=== PATIENT | male | born 1960 | race Caucasian/White ===

== ENCOUNTER → 2017-11-25 08:55 | Outpatient (CLI) | payer BC, SELFPAY ==
[2017-11-25 10:21] LABS: ALB/GLOB Ratio 0.8 RATIO (0.9-2.4); AST(SGOT) 15 U/L (15-37); Alanine Aminotransfer ALT/SGPT 23 U/L (16-61); Albumin, Serum 3.5 g/dL (3.2-5.0); Alkaline Phosphatase 54 U/L (45-117); Anion Gap 7 (5-15); BUN 19 mg/dL (7-18); BUN/Creat Ratio 23.7 RATIO (10-20); Chloride 104 mmol/L (98-107); EST Glomerular Filtration Rate 106 mL/min (>60); Est Glom Filt Rate - Afr Amer 128 mL/min (>60); Globulin 4.3 g/dL (2.2-4.2); Glucose 134 mg/dL (74-106); Potassium 4.8 mmol/L (3.5-5.1); Protein, Total 7.8 g/dL (6.4-8.2); Sodium Level 138 mmol/L (136-145); Thyroid Stim Hormone (TSH) 3.95 uIU/mL (0.358-3.74)
[2017-11-25 17:36] LABS: T4 Free Direct 0.89 ng/dL (0.76-1.46)
== END ==
PROVIDERS: Family Provider Family Medicine; PCP Family Medicine; Visit Provider Family Medicine
DX: E11.9 Type 2 diabetes mellitus without complications (principal); E66.9 Obesity, unspecified
CPT/HCPCS: 36415; 80053; 84403; 84439; 84443

== ENCOUNTER → 2018-01-03 05:54 | Outpatient (CLI) | payer BC, SELFPAY ==
--- NOTE | 2018-01-03 05:54 | DT_ITS ---
This patient was seen during an EMR downtime December 27, 2017 - January 03, 2018. This patient may have a combination of paper and electronic documentation or all paper documentation. All documentation is viewable within the e-chart portion of [facility] for each patient visit.
--- NOTE | 2018-01-03 06:46 | ECHOCS_ITS ---
Reason For Study: Arrhythmia Procedure This was a 2D Doppler, Color Flow transthoracic echocardiogram. Exam performed in department. Left Ventricle Normal LV size. Left ventricular systolic function is normal. The estimated ejection fraction is 60 %. No evidence for diastolic dysfunction. No regional wall motion abnormalities noted. Right Ventricle Normal RV size. Normal systolic function. Atria The left atrium is mildly enlarged. Normal right atrium. Mitral Valve Normal mitral valve. Tricuspid Valve Normal tricuspid valve. Aortic Valve The aortic valve is not well visualized. Pulmonic Valve Normal pulmonic valve. Great Vessels Normal aortic root. The pulmonary artery is normal size. Normal inferior vena cava. Pericardium/Pleural No pericardial effusion. Medication Diluted definity 4ml given slow IV push to enhance endocardial definition. MMode/2D Measurements & Calculations LVIDd: 3.8 cm IVSd: 1.2 cm Ao root diam: 3.9 cm LVIDs: 2.1 cm LVPWd: 1.0 cm LA dimension: 3.7 cm RVDd: 4.0 cm FS: 45.6 % LAV(MOD-bp): 92.4 ml LAV(MOD-bp) Indexed: 39.9 ml/m2 LA A4 area: 27.3 cm2 RA A4 area: 22.9 cm2 LAV(MOD-sp2): 86.3 ml LAV(MOD-sp4): 88.2 ml Doppler Measurements & Calculations MV E max madan: 113.4 cm/sec Ao V2 max: 133.9 cm/sec LV V1 max: 109.5 cm/sec MV A max madan: 66.0 cm/sec Ao max P.5 mmHg LV V1 max P.0 mmHg MV E/A: 1.7 PA V2 max: 83.5 cm/sec Interpretation Summary Normal LV size. Left ventricular systolic function is normal. The estimated ejection fraction is 60 %. No evidence for diastolic dysfunction. Contrast injection was performed. Ordering Physician: Maksim Ware MD Referring Physician: Yovany Booker MD Performed By: Mary Mcdonough RDCS
--- NOTE | 2018-01-03 18:01 | STRESSREP ---
Stress Test Report Pharmacologic myocardial perfusion stress test. 57-year-old man with a history of premature ventricular complexes. Stress protocol: Resting EKG demonstrates normal sinus rhythm with a rate of 101 bpm and frequent premature ventricular complexes unifocal. Resting blood pressure is 148/100 mmHg. 0.4 mg regadenoson was infused per usual protocol followed by rapid intravenous saline flush injection continuous EKG monitoring was performed. Patient maintained sinus rhythm throughout the recording. Ventricular ectopic beats were noted in the pattern of bigeminy. The resting blood pressure is 148/100 with a final blood pressure 146/100 mmHg. Myocardial perfusion protocol. 14.6 mCi of technetium 99m sestamibi was injected at rest. 0.4 mg regadenoson was infused per usual protocol peak infusion 44.0 mCi of technetium 99m sestamibi was injected stress images were obtained stress and rest images were reconstructed and compared in the short axis vertical long and horizontal long axis. Gated images were also obtained pre- Perfusion SPECT analysis: Review of the stress images demonstrate normal uptake of tracer noted in all areas of the myocardium. The resting images similarly demonstrate normal uptake of tracer noted in all areas of the myocardium. No areas of reversibility are noted suggest ischemia. No previous infarct is noted. Gated SPECT analysis: The gated ejection fraction is estimated to be 30%. Conclusion: Dilated cardiomyopathy. Pharmacologic myocardial perfusion stress test with no evidence of ischemia.
== END ==
PROVIDERS: Family Provider Family Medicine; PCP Family Medicine; Visit Provider Internal Medicine Cardiovascular Disease
DX: I49.3 Ventricular premature depolarization (principal); I25.10 Atherosclerotic heart disease of native coronary artery without angina pectoris
CPT/HCPCS: 78452; 93017; 93306; A9500; Q9957; A4216; C8929; J2785

== ENCOUNTER 2018-03-15 19:42 | Observation (INO) | payer BC, SELFPAY ==
[2018-03-11 09:36] LABS: Hematocrit 38.3 % (40-54); Hemoglobin 11.6 g/dl (13.0-16.5); Mean Corp Hgb Conc 30.3 g/gl (32-36); Mean Corpuscular Volume 79.1 fL (80-94); Mean Platelet Vol. 9.8 fl (6.2-12.0); Platelet Count 204 K/mm3 (150-450); RBC Distribution Width CV 19.1 % (11.6-14.6); RBC Distribution Width SD 55.3 fl (35.1-43.9); Red Blood Count 4.84 M/mm3 (4.6-6.2); White Blood Count 6.3 K/mm3 (4.4-11.0)
[2018-03-11 09:38] LABS: Scan Indicated on CBC? Y/N NO
[2018-03-11 10:10] LABS: Anion Gap 10 (5-15); BUN 22 mg/dL (7-18); BUN/Creat Ratio 21.2 RATIO (10-20); Calcium,Total 8.9 mg/dL (8.5-10.1); Chloride 109 mmol/L (98-107); Creatinine, Serum 1.04 mg/dL (0.70-1.30); EST Glomerular Filtration Rate 78 mL/min (>60); Est Glom Filt Rate - Afr Amer 95 mL/min (>60); Glucose 131 mg/dL (74-106); Potassium 4.5 mmol/L (3.5-5.1); Sodium Level 142 mmol/L (136-145)
[2018-03-11 10:16] LABS: Hemoglobin A1c 6.5 % (4.2-6.3)
[2018-03-15] VITALS (14 sets, daily range): BP systolic 127–162; BP diastolic 69–121; PULSE 94–109; RESP 16–17; TEMP 36.8–37; O2SAT 94–99; BMI 41.6; BMI 41.7
[2018-03-15 14:46] LABS: Bedside Glucose 117 mg/dL (70-110)
[2018-03-15 18:14] LABS: Albumin, Serum 3.6 g/dL (3.2-5.0); Anion Gap 7 (5-15); BUN 20 mg/dL (7-18); BUN/Creat Ratio 22.6 RATIO (10-20); Chloride 107 mmol/L (98-107); Creatinine, Serum 0.88 mg/dL (0.70-1.30); EST Glomerular Filtration Rate 95 mL/min (>60); Est Glom Filt Rate - Afr Amer 114 mL/min (>60); Estimated Creatinine Clearance 90.68 ml/min; Glucose 106 mg/dL (74-106); Magnesium 1.7 mg/dL (1.6-2.6); Potassium 4.5 mmol/L (3.5-5.1); Sodium Level 138 mmol/L (136-145)
--- NOTE | 2018-03-15 19:50 | PCM.HP.STD ---
Problem List (1) Hyperlipidemia Status: Chronic Qualifiers: (2) Dyspnea Status: Chronic (3) Frequent PVCs Status: Chronic (4) Hypertension Status: Chronic Qualifiers: (5) Obesity Status: Chronic (6) Pulses bigeminy Status: Acute (7) Umbilical hernia Status: Chronic History of Present Illness Date of Admission: 03/15/18 Chief Complaint: Preoperative found to have pulses bigeminy. The patient is a 57 year old M with history of diabetes mellitus type 2, glucose well controlled on oral hypoglycemic agents, hypertension while scheduled for elective umbilical hernia by Dr. Ron today but was canceled because of PVCs and pulses bigeminy. Patient denies any chest pain, shortness of breath but had this feeling of frequent heartbeats for about 2 years. Patient also had a pharmacological nuclear stress test and 2D echo in December 2017. This test was found negative EF 30% echo shows EF 60% with no evidence of diastole. Mild LAE. Patient had EKG on March 11, 2018 which shows sinus bradycardia with frequent PVCs pulses bigeminy. QTc 467 ms. EKG today prior to surgery shows frequent pulses bigeminy with QTc 487 ms Lab work done today shows K4.5, magnesium 1.7. Last chest x-ray in our system 03/2016 shows reported as hyperinflation with no acute infiltration. Dr. Ron decided to admit under hospitalist service with cardiology consult. [] Past Medical History Past Medical History (Chronic Problems): Chronic Problems (Last Reviewed 02/23/18 @ 13:59 by Yohan Ron MD) Umbilical hernia (Chronic) Hyperlipidemia (Chronic) Dyspnea (Chronic) Frequent PVCs (Chronic) Hypertension (Chronic) Obesity (Chronic) Medical History: Medical History (Last Reviewed 02/23/18 @ 13:59 by Yohan Ron MD) Hyperlipidemia (Chronic) E78.5 Dyspnea (Chronic) R06.00 Frequent PVCs (Chronic) I49.3 Hypertension (Chronic) I10 Obesity (Chronic) E66.9 Type 2 diabetes mellitus without complications E11.9 Umbilical hernia K42.9 Allergies No Known Allergies Allergy (Verified 03/08/18 09:37) Home Medications: Ambulatory Orders Medication Instructions Recorded lisinopril 10 mg tablet 10 mg PO QDAY 30 Days #30 tab 11/30/17 metformin ER 500 mg 500 mg PO BID 30 Days #60 11/30/17 tablet,extended release 24 hr simvastatin 20 mg tablet 20 mg PO QPM 30 Days #30 tab 11/30/17 sitagliptin 100 mg tablet 100 mg PO QDAY 11/30/17 Surgical History: Surgical History (Last Reviewed 02/23/18 @ 13:59 by Yohan Ron MD) left foot surgery Smoking Status: Current some day smoker Tobacco Use: Chew Review of Systems Constitutional: Reports: - - Obese. Denies: Chills, Fever, Weight Change HEENT: Denies: Head Aches, Sinus Congestion, Sinus Drainage Cardiovascular: Denies: Chest Pain, Palpitations Respiratory: Denies: Cough, Shortness of breath at rest, Sputum production Gastrointestinal: Denies: Abdominal Pain, Nausea, Vomiting Genitourinary: Denies: Dysuria Musculoskeletal: Denies: Joint Pain, Joint Tenderness Skin: Denies: Rash, Wounds Neurological: Denies: Numbness, Tingling, Focal weakness Psychiatric: Denies: Anxiety, Depression, Homicidal Ideations, Suicidal Ideations Hematologic/ Lymphatic: Denies: Easy Bruising, Easy Bleeding VTE Information - Inpt Only VTE Present on Admission: No VTE Mechan Device Prophylaxis: None VTE Pharm Prophylaxis ordered?: Yes Patient Problems: Active and Suspected Problems (Last Reviewed 02/23/18 @ 13:59 by Yohan Ron MD) Pulses bigeminy (Acute) - Physical Exam General: Alert, Oriented x3, Cooperative HEENT: Atraumatic, PERRLA, EOMI, Normocephalic Neck: Supple, No JVD, Negative Carotid Bruits Lungs: Clear to auscultation, Normal air movement, No rhonchi, No wheeze Cardiovascular: Regular rate, No murmurs Abdomen: Bowel Sounds Present, Soft, Non Tender, Hernia - Umbilical hernia present, chronic in nature. No signs of obstruction. Extremities: No edema, Capillary Refill Less than 3 Seconds Skin: No rashes, No breakdown Musculoskeletal: No Tenderness to Palpation of Joints or Extremities Neurological: Cranial nerves II-XII grossly intact Psych/Mental Status: Normal Affect, Appropriate Vital Signs Temp Pulse Resp BP Pulse Ox 98.2 F 105 H 17 127/81 H 97 03/15/18 19:30 03/15/18 19:30 03/15/18 19:30 03/15/18 19:30 03/15/18 19:30 Oxygen Flow Rate (L/min) 4 Oxygen Delivery Method Room Air Weight: 274 lb 0.553 oz Body Mass Index (BMI) 41.6 Intake and Output for Last 24 Hours 03/13/18 03/14/18 03/15/18 23:59 23:59 23:59 Intake Total 700 / 700 Balance 700 / 700 Laboratory Tests Past 24 Hrs 03/15/18 17:44 Sodium 138 Potassium 4.5 Chloride 107 Carbon Dioxide 24.0 Anion Gap 7 BUN 20 H Creatinine 0.88 Estim Creat Clear Calc 90.68 Est GFR (MDRD) Af Amer 114 Est GFR (MDRD) Non-Af 95 BUN/Creatinine Ratio 22.6 H Glucose 106 Calcium 9.0 Magnesium 1.7 Troponin I < 0.015 Albumin 3.6 POC Glucose 03/15/18 14:12 POC Glucose 117 H Assessment/Plan All Active Problems (Last Reviewed 02/23/18 @ 13:59 by Yohan Ron MD) Pulses bigeminy (Acute) The patient is a 57 year old M with history of diabetes mellitus type 2, glucose well controlled on oral hypoglycemic agents, hypertension while scheduled for elective umbilical hernia by Dr. Ron today but was canceled because of PVCs and pulses bigeminy. Patient denies any chest pain, shortness of breath but had this feeling of frequent heartbeats for about 2 years. Patient also had a pharmacological nuclear stress test and 2D echo in December 2017. This test was found negative EF 30% echo shows EF 60% with no evidence of diastole. Mild LAE. Patient had EKG on March 11, 2018 which shows sinus bradycardia with frequent PVCs pulses bigeminy. QTc 467 ms. EKG today prior to surgery shows frequent pulses bigeminy with QTc 487 ms Lab work done today shows K4.5, magnesium 1.7. Last chest x-ray in our system 03/2016 shows reported as hyperinflation with no acute infiltration. Dr. Ron decided to admit under hospitalist service with cardiology consult. 1. Pulses bigeminy with frequent PVCs: As per the previous EKG of March 11, patient had pulses bigeminy but it got more frequent this time. As per the ui ux engineer's office visit patient had the symptoms of palpitation, PVCs. Patient denies any previous cardiac conditions including heart failure, near syncope or syncopal episodes. Currently, patient is asymptomatic. Patient is being admitted in PCU. Cardiac monitoring. Cardiology consult. Electrolytes tomorrow morning 2. Diabetes mellitus type 2 with good glycemic control: Last A1c 6.5 in February 2018. Blood sugar in BMP is 106 mg percent. Accu-Chek before meals and at bedtime cover with NovoLog sliding scale. 3. Hypertension: Blood pressure is controlled. Continue home medications 4. Dyslipidemia with morbid obesity: Patient advised fasting profile in December 2016 which showed LDL 103, HDL 92 and total cholesterol 213. Repeat lipid profile tomorrow a.m. Weight loss and exercise advised. 5. Chronic umbilical hernia with no signs and symptoms of obstruction or inflammation: Follow-up with Dr. Ron as an outpatient. Medication reconciliation done. This note was generated with [employer] dictation software. Every effort was made to ensure accuracy, however computerized credit product analyst mistakes may persist. Code Visit OBSV E&M: 73727 Initial observation care L3
[2018-03-15 20:36] LABS: Bedside Glucose 111 mg/dL (70-110)
[2018-03-15] MEDS: Enoxaparin 40 MG/0.4 ML Syringe SC (20:57)
[2018-03-15] MEDS: Atorvastatin Calcium 10 MG Tablet PO (20:58)
[2018-03-15] MEDS: Lisinopril 10 MG Tablet PO (20:59)
[2018-03-16 02:27] VITALS: BP 146/77; PULSE 96; RESP 16; TEMP 36.7; O2SAT 97
[2018-03-16 03:16] VITALS: PULSE 92
[2018-03-16 07:00] VITALS: PULSE 101
[2018-03-16 07:08] LABS: Anion Gap 11 (5-15); BUN 19 mg/dL (7-18); BUN/Creat Ratio 22.2 RATIO (10-20); Calcium,Total 8.8 mg/dL (8.5-10.1); Chloride 105 mmol/L (98-107); Cholesterol 185 mg/dL (200); Creatinine, Serum 0.86 mg/dL (0.70-1.30); EST Glomerular Filtration Rate 98 mL/min (>60); Est Glom Filt Rate - Afr Amer 119 mL/min (>60); Estimated Creatinine Clearance 92.79 ml/min; Glucose 124 mg/dL (74-106); High Density Lipoprotein 80 mg/dL; Potassium 4.7 mmol/L (3.5-5.1); Sodium Level 140 mmol/L (136-145); Triglycerides 153 mg/dL; Very Low Density Lipoprotein 31 mg/dL (5-40)
[2018-03-16 07:21] LABS: Bedside Glucose 133 mg/dL (70-110)
[2018-03-16 07:27] VITALS: O2SAT 98
[2018-03-16 08:36] VITALS: BP 129/83; PULSE 50; RESP 16; TEMP 36.8; O2SAT 97
[2018-03-16] MEDS: Enoxaparin 40 MG/0.4 ML Syringe SC (08:38)
--- NOTE | 2018-03-16 09:28 | PCM.PN.SRG ---
Patient Problems: Active and Suspected Problems (Last Reviewed 02/23/18 @ 13:59 by Yohan Ron MD) Pulses bigeminy (Acute) Subjective: Patient evaluated resting comfortably in bed. He denies chest pain, shortness of breath or heart palpitations. Patient had multiple arrhythmias overnight per nursing. - Physical Exam General: Alert, Oriented x3, Cooperative Vital Signs Temp Pulse Resp BP Pulse Ox 98.3 F 50 L 16 129/83 H 97 03/16/18 08:36 03/16/18 08:36 03/16/18 08:36 03/16/18 08:36 03/16/18 08:36 Oxygen Flow Rate (L/min) 4 Oxygen Delivery Method Room Air Weight: 274 lb 4.081 oz Body Mass Index (BMI) 41.7 Intake and Output for Last 24 Hours 03/14/18 03/15/18 03/16/18 23:59 23:59 23:59 Intake Total 700 / 700 240 / 240 Balance 700 / 700 240 / 240 Laboratory Tests Past 24 Hrs 03/15/18 03/15/18 03/16/18 17:44 21:26 00:04 Sodium 138 Potassium 4.5 Chloride 107 Carbon Dioxide 24.0 Anion Gap 7 BUN 20 H Creatinine 0.88 Estim Creat Clear Calc 90.68 Est GFR (MDRD) Af Amer 114 Est GFR (MDRD) Non-Af 95 BUN/Creatinine Ratio 22.6 H Glucose 106 Calcium 9.0 Magnesium 1.7 Troponin I < 0.015 < 0.015 < 0.015 Albumin 3.6 Triglycerides Cholesterol LDL Cholesterol VLDL Cholesterol HDL Cholesterol 03/16/18 06:18 Sodium 140 Potassium 4.7 Chloride 105 Carbon Dioxide 24.0 Anion Gap 11 BUN 19 H Creatinine 0.86 Estim Creat Clear Calc 92.79 Est GFR (MDRD) Af Amer 119 Est GFR (MDRD) Non-Af 98 BUN/Creatinine Ratio 22.2 H Glucose 124 H Calcium 8.8 Magnesium Troponin I Albumin Triglycerides 153 Cholesterol 185 LDL Cholesterol 74 VLDL Cholesterol 31 HDL Cholesterol 80 POC Glucose 03/16/18 03/15/18 03/15/18 07:14 20:23 14:12 POC Glucose 133 H 111 H 117 H Medical Necessity - Tobacco Use Smoking Status: Current some day smoker Tobacco Use: Chew Assessment/Plan All Active Problems (Last Reviewed 02/23/18 @ 13:59 by Yohan Ron MD) Samra cornjeo (Acute) I have evaluated this patient in conjunction with Dr. Ron. Impression: Cardiac arrhythmia. Umbilical hernia Cardiology consulted Appreciate hospitalist input Patient to follow-up back up with our office once cleared by cardiology to reschedule umbilical hernia repair. Code Visit Inpatient E&M: 64783 Subs Hosp L1
--- NOTE | 2018-03-16 10:05 | PCM.DC ---
- Discharge Diagnoses Current Active Problems: Current Active and Chronic Problems (Last Reviewed 02/23/18 @ 13:59 by Yohan Ron MD) Pulses bigeminy (Acute) Umbilical hernia (Chronic) You will use the following diet at home:: Calorie/Carbohydrate Controlled (specify 1200, 1400, etc), Cardiac Discharge Activity: Return to Normal Activity Call your doctor if you observe: Shortness of breath, Dizziness, Fainting spells, Chest pain Additional Instructions: You will need to return for placement of cardiac holter monitor on Wednesday03/21/18. Dr. Ware will read this test and if provide clearance for surgery if normal. Increase home metoprolol regimen to 50mg daily. Allergies/Adverse Reactions: Allergies No Known Allergies Allergy (Verified 03/08/18 09:37) Medications to take at Discharge lisinopril 10 mg tablet 10 mg PO QDAY 30 Days #30 tab 11/30/17 metformin ER 500 mg tablet,extended release 24 hr 500 mg PO BID 30 Days #60 11/30/17 simvastatin 20 mg tablet 20 mg PO QPM 30 Days #30 tab 11/30/17 sitagliptin 100 mg tablet 100 mg PO QDAY 11/30/17 Metoprolol Succinate 50 mg PO DAILY #30 tab.er.24h 03/16/18 The following prescriptions were given: Metoprolol Succinate 50 mg PO DAILY #30 tab.er.24h Orders to be completed after discharge: Cardiac Holter Monitor, Set-Up [[facility]] Time Frame: 03/21/18, Location: None Selected Primary Care Physician: Sukumar Booker MD [Primary Care Provider] - Please follow up with your Primary Care Physician in: 1 Week Test Results: Test results from this visit will be discussed in further detail at your follow-up appointment, if applicable. Please Follow Up With: Yohan Ron MD When: As scheduled Proposed Discharge Date: 03/16/18
--- NOTE | 2018-03-16 10:20 | PCM.DC.SUM ---
<Seda Weber - Last Filed: 03/16/18 10:31> Discharge Date and Diagnosis Date of Admission: 03/15/18 Date of Discharge: 03/16/18 - Primary Discharge Diagnosis Active and Suspected Problems (Last Reviewed 02/23/18 @ 13:59 by Yohan Ron MD) 1. Sinus tachycardia, frequent PVCs, bigeminal PVC - Secondary Discharge Diagnosis Chronic Problems (Last Reviewed 02/23/18 @ 13:59 by Yohan Ron MD) Umbilical hernia (Chronic) Hyperlipidemia (Chronic) Dyspnea (Chronic) Frequent PVCs (Chronic) Hypertension (Chronic) Obesity (Chronic) Hospital Course and Treatment Operations: None Procedures: None Summary of Care Provided: The patient is a 57 year old M admitted 03/15/2018 due to pulses bigeminy which was found preoperatively. Patient has a past medical history of type 2 diabetes mellitus, hypertension, hyperlipidemia, obesity. Patient was scheduled to have elective umbilical hernia repair by Dr. Ron. This was canceled due to PVCs and pulse is bigeminy. Patient asymptomatic. Denies palpitations, shortness of breath, chest pain. He recently underwent cardiac evaluation preoperatively which included stress test and echocardiogram. Echocardiogram 01/03/2018 demonstrated an EF of 60%, no evidence of diastolic dysfunction. Stress test December 2017 demonstrated dilated cardiomyopathy with negative for stress-induced ischemia. Previous EKGs show premature ventricular complexes. Patient's home metoprolol regimen increased to 50 mg daily. Troponins during admission negative. Serial EKGs demonstrated PVCs with no ST-T changes. Telemetry demonstrated sinus tachycardia, frequent PVCs, bigeminal PVC. In addition to increase the metoprolol regimen, patient will have 24 hour Holter monitor placed 03/21/[address] Ware will read and provide clearance for further umbilical hernia repair surgery. Patient will contact Dr. Ron's office for rescheduling of surgery following cardiac clearance. Follow-up with primary care physician in 1 week. General: Alert, Oriented x3, Cooperative HEENT: Atraumatic, PERRLA, EOMI, Normocephalic Neck: Supple, No JVD, Negative Carotid Bruits Lungs: Clear to auscultation, Normal air movement, No rhonchi, No wheeze Cardiovascular: Regular rate, No murmurs Abdomen: Bowel Sounds Present, Soft, Non Tender, Umbilical hernia present. Extremities: No edema, Capillary Refill Less than 3 Seconds, bilateral varicose veins Skin: No rashes, No breakdown Musculoskeletal: No Tenderness to Palpation of Joints or Extremities Neurological: Cranial nerves II-XII grossly intact Psych/Mental Status: Normal Affect, Appropriate Patient seen exam prior to discharge. Physical assessment as noted above. Patient stable for discharge home with the follow-up recommendations as noted above. This patient was seen by MICHI Serrano under the supervision of Dr. Dwyer. Discharge Diet: Low fat/ Low Cholesterol, Carb Control Diet Discharge Activity: Return to Normal Activity Call your doctor if you observe: Shortness of breath, Dizziness, Fainting spells, Chest pain Home Medications: Medications to take at Discharge lisinopril 10 mg tablet 10 mg PO QDAY 30 Days #30 tab 11/30/17 metformin ER 500 mg tablet,extended release 24 hr 500 mg PO BID 30 Days #60 11/30/17 simvastatin 20 mg tablet 20 mg PO QPM 30 Days #30 tab 11/30/17 sitagliptin 100 mg tablet 100 mg PO QDAY 11/30/17 Metoprolol Succinate 50 mg PO DAILY #30 tab.er.24h 03/16/18 Following Prescrptions Were Given to Patient: Metoprolol Succinate 50 mg PO DAILY #30 tab.er.24h Other Amb Orders: Cardiac Holter Monitor, Set-Up [[facility]] Time Frame: 03/21/18, Location: None Selected Primary Care Physician: Sukumar Booker MD [Primary Care Provider] - Please follow up with your Primary Care Physician in: 1 Week Please Follow Up With: Yohan Ron MD When: As scheduled Disposition: Home Minutes spent on discharge:: 35 Patient Condition:: Stable Medical Necessity - Tobacco Use Smoking Status: Current some day smoker Tobacco Use: Chew Meaningful Use Info Meaningful Use Diagnoses (Choose all that apply): None applicable <Adolfo Dwyer - Last Filed: 03/16/18 16:12> Discharge Date and Diagnosis - Secondary Discharge Diagnosis Chronic Problems (Last Reviewed 02/23/18 @ 13:59 by Yohan Ron MD) Umbilical hernia (Chronic) Hyperlipidemia (Chronic) Dyspnea (Chronic) Frequent PVCs (Chronic) Hypertension (Chronic) Obesity (Chronic) Hospital Course and Treatment Summary of Care Provided: The patient is a 57 year old M [] Code Visit Inpatient E&M: 18621 Disch Hosp
== END 2018-03-16 10:12 | disposition home or self-care (01) ==
LOC: SDC 19:54 → PCU 19:54
PROVIDERS: Anesthesiology; Surgery; Admitting Provider Internal Medicine; Family Provider Family Medicine; PCP Family Medicine; Visit Provider Family Medicine
PROC: (CPT 49585; principal; 2018-03-15 15:35)
DX: I49.3 Ventricular premature depolarization (principal); K42.9 Umbilical hernia without obstruction or gangrene; E78.5 Hyperlipidemia, unspecified; I10 Essential (primary) hypertension; E66.9 Obesity, unspecified; Z68.41 Body mass index [BMI] 40.0-44.9, adult; Z71.3 Dietary counseling and surveillance; Z53.09 Procedure and treatment not carried out because of other contraindication; R06.00 Dyspnea, unspecified; E11.9 Type 2 diabetes mellitus without complications; R00.0 Tachycardia, unspecified; F17.220 Nicotine dependence, chewing tobacco, uncomplicated; Z79.899 Other long term (current) drug therapy; Z79.84 Long term (current) use of oral hypoglycemic drugs; E66.01 Morbid (severe) obesity due to excess calories
CPT/HCPCS: 49585; 36415; 80048; 80061; 82040; 82962; 83036; 83735; 84484; 85027; 93005; 96372; 99218; J7120; G0378; G0379

== ENCOUNTER → 2018-03-21 08:34 | Outpatient (CLI) | payer BC, SELFPAY | PROVIDERS: Family Provider Family Medicine; PCP Family Medicine; Visit Provider Nurse Practitioner Family | DX: R00.0 Tachycardia, unspecified (principal) | CPT/HCPCS: 93225; 93226 ==

== ENCOUNTER 2018-03-25 11:19 | Observation (INO) | payer BC, SELFPAY ==
[2018-03-25] VITALS (14 sets, daily range): BP systolic 95–162; BP diastolic 60–80; PULSE 96–106; RESP 16–26; TEMP 36.4–36.9; O2SAT 94–104; BMI 42.7
[2018-03-25 11:57] LABS: Absolute Lymphocyte Count 1.88 X10^3/ul (0.83-4.51); Absolute Neutrophil Count 4.9 X10^3/uL (2.0-7.7); Basophil# 0.05 X10^3/uL; Basophil% 0.6 % (0-1); Eosinophils% 2.6 % (0-5); Hemoglobin 11.6 g/dl (13.0-16.5); Lymphocyte # 1.88 X10^3/ul (4.0); Lymphocyte % 24.1 % (19-41); Mean Corp Hgb Conc 30.5 g/gl (32-36); Mean Corpuscular Hgb 24.3 pg (27.0-32.0); Mean Corpuscular Volume 79.7 fL (80-94); Mean Platelet Vol. 10.2 fl (6.2-12.0); Monocyte# 0.74 X10^3/uL; Monocyte% 9.5 % (0-10); Neutrophil % 62.8 % (47-70); Platelet Count 238 K/mm3 (150-450); RBC Distribution Width CV 18.9 % (11.6-14.6); RBC Distribution Width SD 54.2 fl (35.1-43.9); Red Blood Count 4.77 M/mm3 (4.6-6.2); White Blood Count 7.8 K/mm3 (4.4-11.0)
--- NOTE | 2018-03-25 12:00 | ED.VISSUMM ---
- ER Visit Summary Date of Service: 03/25/18 Chief Complaint: Palpitations History of Present Illness: The patient is a 57 M history of noncemented diabetes and hypertension. He has had palpitations for months may be years. He had a negative stress test done in December of this year. Recently he was set up to have a hernia repair electively as outpatient. He had palpitations on the monitor. He was brought in the hospital overnight and set up with outpatient cardiac monitoring. They reviewed his satellite project site monitor in the last day or 2 our concern for possible short runs of V. tach and sending the ER today. He denies any chest pain. He denies any exertional shortness of breath. He is never had a dysrhythmia before nor any cardiac surgery or heart cath. He states he feels fine. He denies any syncopal episodes. Physical Examination: Middle-aged male vital signs are stable afebrile. Pulse ox 94% room air no signs of hypoxia. HEENT exam unremarkable. Neck nontender. Lungs clear to auscultation bilaterally. Heart regular rhythm frequent PVCs like a Bi or trigeminy. No murmur. On the satellite project site monitor he has a normal beat followed by 2 what appears to be wide complex PVCs almost every other normal beat. Abdomen soft and nontender. Normal bowel sounds. Moving all 4 extremities. Calves nontender no edema no cords. Neurovascular intact. Back nontender. Neurologic exam awake and alert with no focal motor deficits. Test Results: He will undergo cardiac workup. Surgery showed borderline cardiomegaly. EKG showed sinus rhythm with extremely frequent PVCs. CBC showed a white count of 7. With a hemoglobin 11.6 mild anemia. Electrolytes unremarkable normal gap and creatinine. Troponin was normal. Emergency Department Course and Treatment: Currently patient stable on discuss his care with Dr. Manning. Treatment Plan: Multiple repeat exams patient's doing well. Continues to have very frequent PVCs. He has had no problems with lightheadedness or syncope. I spoke to Dr. Manning the patient will be given amiodarone bolus and drip. He will be admitted to PCU. I also let the plumbing and heating contractor made aware of his admission the plan is to do a cardiac catheterization on the patient later today. He will also need electrophysiology evaluation. Disposition: Admission Impression: Acute palpitations Frequent ventricular ectopy with runs of V. tach on palpation satellite project site monitor This note was generated with [employer] dictation software. It may contain incorrect words, spelling, and punctuation that were not noted in review of the chart prior to signing ED Disposition - Plan for ED Patient: Chief Complaint: Palpitations Referrals: Sukumar Booker MD [Primary Care Provider] -
[2018-03-25 12:01] LABS: POSITIVE COUNT NO; POSITIVE DIFFERENTIAL NO; POSITIVE MORPHOLOGY NO
--- NOTE | 2018-03-25 12:04 | ED.DCSUM_ITS ---
- ER Visit Summary Date of Service: 03/25/18 Chief Complaint: Palpitations History of Present Illness: The patient is a 57 M history of noncemented diabetes and hypertension. He has had palpitations for months may be years. He had a negative stress test done in December of this year. Recently he was set up to have a hernia repair electively as outpatient. He had palpitations on the monitor. He was brought in the hospital overnight and set up with outpatient cardiac monitoring. They reviewed his machine stone polisher apprentice in the last day or 2 our concern for possible short runs of V. tach and sending the ER today. He denies any chest pain. He denies any exertional shortness of breath. He is never had a dysrhythmia before nor any cardiac surgery or heart cath. He states he feels fine. He denies any syncopal episodes. Physical Examination: Middle-aged male vital signs are stable afebrile. Pulse ox 94% room air no signs of hypoxia. HEENT exam unremarkable. Neck nontender. Lungs clear to auscultation bilaterally. Heart regular rhythm frequent PVCs like a Bi or trigeminy. No murmur. On the machine stone polisher apprentice he has a normal beat followed by 2 what appears to be wide complex PVCs almost every other normal beat. Abdomen soft and nontender. Normal bowel sounds. Moving all 4 extremities. Calves nontender no edema no cords. Neurovascular intact. Back nontender. Neurologic exam awake and alert with no focal motor deficits. Test Results: He will undergo cardiac workup. Surgery showed borderline cardiomegaly. EKG showed sinus rhythm with extremely frequent PVCs. CBC showed a white count of 7. With a hemoglobin 11.6 mild anemia. Electrolytes unremarkable normal gap and creatinine. Troponin was normal. Emergency Department Course and Treatment: Currently patient stable on discuss his care with Dr. Manning. Treatment Plan: Multiple repeat exams patient's doing well. Continues to have very frequent PVCs. He has had no problems with lightheadedness or syncope. I spoke to Dr. Manning the patient will be given amiodarone bolus and drip. He will be admitted to PCU. I also let the development advisor made aware of his admission the plan is to do a cardiac catheterization on the patient later today. He will also need electrophysiology evaluation. Disposition: Admission Impression: Acute palpitations Frequent ventricular ectopy with runs of V. tach on palpation machine stone polisher apprentice This note was generated with [employer] dictation software. It may contain incorrect words, spelling, and punctuation that were not noted in review of the chart prior to signing ED Disposition - Plan for ED Patient: Chief Complaint: Palpitations Referrals: Sukumar Booker MD [Primary Care Provider] -
[2018-03-25 12:11] LABS: Anion Gap 8 (5-15); BUN 22 mg/dL (7-18); BUN/Creat Ratio 21.8 RATIO (10-20); Calcium,Total 9.1 mg/dL (8.5-10.1); Chloride 108 mmol/L (98-107); Creatinine, Serum 1.01 mg/dL (0.70-1.30); EST Glomerular Filtration Rate 81 mL/min (>60); Est Glom Filt Rate - Afr Amer 98 mL/min (>60); Estimated Creatinine Clearance 79.01 ml/min; Glucose 109 mg/dL (74-106); Sodium Level 144 mmol/L (136-145)
[2018-03-25] MEDS: Aspirin 81 MG TAB.CHEW 324 MG PO (12:30)
--- NOTE | 2018-03-25 13:37 | ED.RN ---
Addendum entered by Juliana Crystal 03/25/18 13:41: AMIODARONE GIVEN TO [facility] RN FOR INFUSION. Original Note: BEDSIDE REPORT TO [employer] [facility] RN. PT SKIN P/W/D, RESP EVEN AND UNLABORED, PT A&O X 3, NO DISTRESS NOTED.
--- NOTE | 2018-03-25 14:06 | PCM.HP.STD ---
Problem List (1) Pulses bigeminy Status: Acute (2) Umbilical hernia Status: Chronic (3) Hyperlipidemia Status: Chronic Qualifiers: (4) Frequent PVCs Status: Acute (5) Hypertension Status: Chronic Qualifiers: History of Present Illness Date of Admission: 03/25/18 Chief Complaint: PVC The patient is a 57 year old M with a h/o hypertension, diabetes, umbilical hernia, hyperlipidemia presents from home because he was told by a aegis console operator track to go to the ER after they read a holter monitor report with a significant amount of PVC's. He remains asymptomatic and denies any CP, SOB, lightheadedness or palpitations. 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 He was to have surgery and it was canceled because as anesthesia was preparing, his heart monitor was demonstrating a significant number of bi/trigeminy as well as runs of Vtach. He was discharged from the stay with a holter monitor which was read today with significant PVC burden and he was asked to come to the hospital for cath. In the ED he was started on amiodarone. Electrolytes were all normal. Past Medical History Past Medical History (Chronic Problems): Chronic Problems (Last Reviewed 02/23/18 @ 13:59 by Yohan Ron MD) Umbilical hernia (Chronic) Hyperlipidemia (Chronic) Dyspnea (Chronic) Hypertension (Chronic) Obesity (Chronic) Medical History: Medical History (Last Reviewed 02/23/18 @ 13:59 by Yohan Ron MD) Hyperlipidemia (Chronic) E78.5 Dyspnea (Chronic) R06.00 Frequent PVCs (Chronic) I49.3 Hypertension (Chronic) I10 Obesity (Chronic) E66.9 Type 2 diabetes mellitus without complications E11.9 Umbilical hernia K42.9 Allergies No Known Allergies Allergy (Verified 03/25/18 11:23) Home Medications: Ambulatory Orders Medication Instructions Recorded lisinopril 10 mg tablet 10 mg PO QDAY 30 Days #30 tab 11/30/17 metformin ER 500 mg 500 mg PO BID 30 Days #60 11/30/17 tablet,extended release 24 hr simvastatin 20 mg tablet 20 mg PO QPM 30 Days #30 tab 11/30/17 sitagliptin 100 mg tablet 100 mg PO QDAY 11/30/17 Metoprolol Succinate 50 mg PO DAILY #30 tab.er.24h 03/16/18 Surgical History: Surgical History (Last Reviewed 02/23/18 @ 13:59 by Yohan Ron MD) left foot surgery Surgical History: arthroscopy, knee Lives: Spouse/ Significant Other Smoking Status: Never smoker Alcohol: None Drugs: None - *Family History Maternal Family History: Family History (Last Reviewed 02/23/18 @ 13:59 by Yohan Ron MD) Uncle Myocardial infarction, Onset Age: 50 CAD (coronary artery disease) Uncle Myocardial infarction, Onset Age: 60 CAD (coronary artery disease) Review of Systems Constitutional: Denies: Chills, Fever, Weight Change HEENT: Denies: Head Aches, Sinus Congestion, Sinus Drainage Cardiovascular: Denies: Chest Pain, Palpitations Respiratory: Denies: Cough, Shortness of breath at rest, Sputum production Gastrointestinal: Denies: Abdominal Pain, Nausea, Vomiting Genitourinary: Denies: Dysuria Musculoskeletal: Denies: Joint Pain, Joint Tenderness Skin: Denies: Rash, Wounds Neurological: Denies: Numbness, Tingling, Focal weakness Psychiatric: Denies: Anxiety, Depression Hematologic/ Lymphatic: Denies: Easy Bruising, Easy Bleeding VTE Information - Inpt Only VTE Present on Admission: No - Physical Exam General: Alert, Oriented x3, Cooperative, No apparent distress HEENT: Atraumatic, PERRLA, EOMI, Normocephalic Oral: Moist Mucosa Neck: Supple, No JVD Lungs: Clear to auscultation, Normal air movement, No rhonchi, No wheeze, No rales Cardiovascular: No murmurs, Tachycardic, - - irregular rhythm Abdomen: Soft, Non Tender, Non-Distended, No Hepato-splenomegaly, Hernia Skin: No rashes, No breakdown Neurological: Neuro grossly intact, Motor Exam 5/5 strength throughout, Sensory exam intact to light touch and pain Psych/Mental Status: Normal Affect, Appropriate Vital Signs Temp Pulse Resp BP Pulse Ox 98.4 F 106 H 26 H 128/73 H 99 03/25/18 11:23 03/25/18 11:23 03/25/18 11:23 03/25/18 11:23 03/25/18 12:33 Oxygen Delivery Method Room Air Weight: 280 lb 13.903 oz Body Mass Index (BMI) 42.7 Laboratory Tests Past 24 Hrs 03/25/18 03/25/18 11:20 11:20 WBC 7.8 RBC 4.77 Hgb 11.6 L Hct 38.0 L MCV 79.7 L MCH 24.3 L MCHC 30.5 L RDW 18.9 H RDW Differential 54.2 H Plt Count 238 MPV 10.2 Immature Gran % (Auto) 0.400 Neut % (Auto) 62.8 Lymph % (Auto) 24.1 [place] % (Auto) 9.5 Eos % (Auto) 2.6 Baso % (Auto) 0.6 Absolute Neuts (auto) 4.9 Absolute Lymphs (auto) 1.88 Total Counted Not Reportable Sodium 144 Potassium 5.0 Chloride 108 H Carbon Dioxide 28.0 Anion Gap 8 BUN 22 H Creatinine 1.01 Estim Creat Clear Calc 79.01 Est GFR (MDRD) Af Amer 98 Est GFR (MDRD) Non-Af 81 BUN/Creatinine Ratio 21.8 H Glucose 109 H Calcium 9.1 Troponin I < 0.015 Assessment/Plan All Active Problems (Last Reviewed 02/23/18 @ 13:59 by Yohan oRn MD) Pulses bigeminy (Acute) Frequent PVCs (Acute) 1. PVCs with bi/trigeminy and runs of Vtach/HTN/HLD - received amiodarone bolus and started on a gtt - c/s to cards for further management to decide on anti-arrhythmic - EKG with PVC's in a right outflow pattern - May need transferred for a electrocardiology study depending on the results of the cath - c/w his BB, [place]-i and statin - This PVC burden is the likely cause for his dilated cardiomyopathy on the stress test in December 2. DM - hold his home meds and start SSI 3. Umbilical hernia - Monitor for now, is not strangulated or incarcerated - no emergent management DVT: Heparin Diet: Cardiac/DM Code Visit Inpatient E&M: 34506 Init Hosp L3
--- NOTE | 2018-03-25 15:19 | PCM.CONS.C ---
Problem List (1) Arrhythmia Status: Chronic Qualifiers: Atrial fibrillation type: persistent Comment: Wide QRS tachycardai, Nonsustained V. Tach. Reason for Consult Date of Consultation: 03/25/18 History of Present Illness: 57 years old morbidly obese gentleman with chronic PVCs who had a markedly abnormal Holter monitor which was read today showing frequent nonsustained ventricular tachycardia. He was instructed to present to the emergency room as soon as possible for further evaluation and care. Patient denies any history of myocardial infarction congestive heart failure CVA TIA GI bleed syncope or presyncope. He is quite active physically and denies palpitations PND orthopnea with excellent. Past medical history significant for hypertension diabetes dyslipidemia and morbid obesity. He probably also has sleep apnea. Patient was diagnosed with it with irregular heartbeats 2 years ago but had no further workup until earlier this summer for which she was admitted to the hospital after the surgeons refused to operate on his gallbladder due to arrhythmias. Stress test with myocardial perfusion imaging showed an EF of 30%, however semitendinous echocardiogram showed normal LV ejection fraction. He did not have any enzyme elevation. He was sent home with a Holter monitor that was read today as mentioned above. [] Past Medical History Allergies/Adverse Reactions: Allergies No Known Allergies Allergy (Verified 03/25/18 11:23) Home Medications: Ambulatory Orders Medication Instructions Recorded lisinopril 10 mg tablet 10 mg PO QDAY 30 Days #30 tab 11/30/17 metformin ER 500 mg 500 mg PO BID 30 Days #60 11/30/17 tablet,extended release 24 hr simvastatin 20 mg tablet 20 mg PO QPM 30 Days #30 tab 11/30/17 sitagliptin 100 mg tablet 100 mg PO QDAY 11/30/17 Metoprolol Succinate 50 mg PO DAILY #30 tab.er.24h 03/16/18 Past Medical History (Chronic Problems): Chronic Problems (Last Reviewed 02/23/18 @ 13:59 by Yohan Ron MD) Arrhythmia (Chronic) Wide QRS tachycardai, Nonsustained V. Tach. Umbilical hernia (Chronic) Hyperlipidemia (Chronic) Dyspnea (Chronic) Hypertension (Chronic) Obesity (Chronic) Surgical History: arthroscopy, knee - *Family History Maternal Family History: Family History (Last Reviewed 02/23/18 @ 13:59 by Yohan Ron MD) Uncle Myocardial infarction, Onset Age: 50 CAD (coronary artery disease) Uncle Myocardial infarction, Onset Age: 60 CAD (coronary artery disease) Lives: Spouse/ Significant Other Smoking Status: Never smoker Alcohol: None Drugs: None Review of Systems - Review of Systems General: Denies: Fever, Night Sweats, Fatigue Cardiovascular: Denies: Chest Discomfort, Shortness of Breath, Orthopnea, PND, Peripheral Edema, Palpitations, Lightheadedness, Dizziness, Near Syncope, Syncope Respiratory: Denies: Cough, Sputum Production, Hemoptysis Gastrointestinal: Denies: Hematemesis, Hematochezia, Melena Genitourinary: Denies: Dysuria, Hematuria Skin: Denies: Rash Objective: Vital Signs Temp Pulse Resp BP Pulse Ox 98.4 F 106 H 26 H 128/73 H 99 03/25/18 11:23 03/25/18 11:23 03/25/18 11:23 03/25/18 11:23 03/25/18 12:33 Oxygen Delivery Method Room Air Weight: 127.4 kg Body Mass Index (BMI) 42.7 General: Awake, Alert, Oriented x 3 Neck: No JVD Lungs: Clear to auscultation Cardiovascular: Irregular Rhythm, No Murmurs, No Gallops Abdomen: Soft, Non Tender Extremities: No Cyanosis, No edema Neurological: No Focal Motor or Sensory Deficit Psych/Mental Status: Agitated 03/25/18 11:20: WBC 7.8, RBC 4.77, Hgb 11.6 L, Hct 38.0 L, MCV 79.7 L, MCH 24.3 L, MCHC 30.5 L, RDW 18.9 H, RDW Differential 54.2 H, Plt Count 238, MPV 10.2, Immature Gran % (Auto) 0.400, Neut % (Auto) 62.8, Lymph % (Auto) 24.1, [place] % (Auto) 9.5, Eos % (Auto) 2.6, Baso % (Auto) 0.6, Absolute Neuts (auto) 4.9, Total Counted Not Reportable 03/25/18 11:20: Sodium 144, Potassium 5.0, Chloride 108 H, Carbon Dioxide 28.0, Anion Gap 8, BUN 22 H, Creatinine 1.01, Est GFR (MDRD) Af Amer 98, Est GFR (MDRD) Non-Af 81, BUN/Creatinine Ratio 21.8 H, Glucose 109 H, Calcium 9.1, Troponin I < 0.015 Rhythm: EKG: ECHO: Stress Test: Cardiac Cath: PCI: CT Surgery: Holter monitor: EPS: PPM: CXR: Chest CT Scan: Assessment/Plan Chronic asymptomatic nonsustained ventricular tachycardia. We will recommend cardiac catheterization to exclude ischemia as an underlying rhythm. Further recommendations are to follow.
--- NOTE | 2018-03-25 15:33 | EKG12_ITS ---
Test Reason : ROUTINE Blood Pressure : / mmHG Vent. Rate : 101 BPM Atrial Rate : 033 BPM P-R Int : 144 ms QRS Dur : 080 ms QT Int : 388 ms P-R-T Axes : 061 051 078 degrees QTc Int : 503 ms Marked sinus bradycardia with frequent and consecutive Premature ventricular complexes , ventricular couplets Nonspecific ST abnormality Abnormal ECG No previous ECGs available Confirmed by KAREN GARZA ([id number]), editor index BRADY SY ([id number]) on 04/05/2018 2:56:17 PM Referred By: MOOSE Confirmed By:KAREN GARZA
--- NOTE | 2018-03-25 17:46 | PCM.PN.CARD ---
Subjectve: The patient is now status post diagnostic cardiac catheterization which has demonstrated what appeared to be angiographically normal coronary arteries and overall preserved LV systolic function. He appears to be resting comfortably. He has no new acute complaints. He states that he has had rare palpitations in the past. He is not noticed any racing heart rate sensations. He denies any history of lightheadedness, dizziness, near syncope or syncope. He has denied any concerning chest discomfort or difficulty breathing. He states he is active at home and at work. He has had no restrictions. He notes if he had not been going through noncardiac evaluation for noncardiac surgery (hernia surgery) he may not have been diagnosed with a concern of his underlying cardiac ectopy/dysrhythmia, etc. Objective: Vital Signs Temp Pulse Resp BP Pulse Ox 98 F 98 16 151/69 H 97 03/25/18 17:00 03/25/18 17:00 03/25/18 17:00 03/25/18 17:00 03/25/18 17:00 Oxygen Delivery Method Room Air General: Awake, Alert, Oriented x 3, Cooperative, No Acute Distress, Ill Appearing, Obese HEENT: Atraumatic, Normocephalic, PERRL, EOMI, Sclera Non Icteric Oral: Moist Mucosa Neck: Supple, Good ROM, No JVD Lungs: Clear to auscultation Cardiovascular: Regular Rhythm, Premature Ectopic Beats, Normal S1, Normal S2 Vascular: No Carotid Bruits, Normal Femoral Pulses, Normal Radial Pulses Abdomen: Bowel Sounds Present, Soft, Non Tender Extremities: No Cyanosis, No Clubbing, No edema Neurological: No Focal Motor or Sensory Deficit Psych/Mental Status: Appropriate, Normal Affect Rhythm: Sinus rhythm; PVCs; nonsustained wide complex tachycardia at these concerning for aberrancy versus ventricular tachycardia) Cardiac Cath: Please see official report Medical Necessity - Tobacco Use Smoking Status: Never smoker Assessment/Plan 1. Cardiac dysrhythmia The patient does have what appears to be an underlying cardiac dysrhythmia with findings of underlying sinus rhythm with PVCs as well as nonsustained wide complex tachycardia concerning for potentially a combination of aberrant conduction (questionable rate related)/nonsustained ventricular tachycardia. He denies any obvious symptoms other than what he believes to be rare palpitations. Again he has had no sensation of rapid rhythms. He has denied any lightheadedness, dizziness, near syncope or syncope. His spouse is with him and supports this information. He has been found to have from noninvasive and invasive studies what now appears to be angiographically normal-appearing coronary arteries and overall preserved LV systolic function. He has been on beta-marzena therapy. He has been tolerating it well thus far. His case was reviewed with Dr. Bai as well as Dr. Rodriguez of [facility] electrophysiology. Status post review of the case, based upon the historical information and the objective findings, Dr. Rodriguez noted the patient's options were for continued medical management which would include his beta-marzena therapy and outpatient electrophysiology evaluation unless the patient was symptomatic/hemodynamically compromised requiring continued inpatient evaluation and care. The above was discussed at length with the patient and his spouse. He was offered not only continue medical therapy but continued inpatient evaluation care locally as well as at a tertiary care center such as [facility] for further electrophysiology evaluation. The patient requested discharge home with continued outpatient follow-up. He stated as he has had no obvious adverse symptoms or events in the past, and this is not necessarily a new finding for him, he did not feel he needed to remain in the hospital, postpone personal family plans for the near future, etc. He was willing to proceed with outpatient evaluation and care with electrophysiology for further evaluation of his underlying ventricular ectopy and wide-complex tachycardia for the need for further diagnostic studies, medical management, possibly EPS/RFA, or device support. Thus at the present time he is going to continue medical management. This will include advancing his beta-marzena dose as tolerated. He was counseled on monitoring for any concerning symptoms and if any concerning symptoms occur to notify his physicians will report to the nearest hospital for further evaluation care. He was agreeable to this approach. 2. Hypertension He will continue medical management and follow-up as deemed appropriate. 3. Hyperlipidemia He will continue lipid-lowering therapy and follow-up. Comment: The patient's case has been discussed and reviewed with Dr. Dwyer of the [facility] hospitalist staff. This note was generated with [employer] software. It may contain incorrect words, spelling, and punctuation that were not noted in checking the note before signing.
--- NOTE | 2018-03-25 20:16 | PCM.DC ---
- Discharge Diagnoses Current Active Problems: Current Active and Chronic Problems (Last Reviewed 02/23/18 @ 13:59 by Yohan Ron MD) Arrhythmia (Chronic) Wide QRS tachycardai, Nonsustained V. Tach. You will use the following diet at home:: Cardiac - Diabetic Your food should be the consistency of: Regular Your liquids should be the consistency of: Regular/Thin Discharge Activity: Return to Normal Activity Call your doctor if you observe: Shortness of breath, Dizziness, Fainting spells, Chest pain, Increased palpitations (irregular heartbeat) Allergies/Adverse Reactions: Allergies No Known Allergies Allergy (Verified 03/25/18 11:23) Medications to take at Discharge lisinopril 10 mg tablet 10 mg PO QDAY 30 Days #30 tab 11/30/17 metformin ER 500 mg tablet,extended release 24 hr 500 mg PO BID 30 Days #60 11/30/17 simvastatin 20 mg tablet 20 mg PO QPM 30 Days #30 tab 11/30/17 sitagliptin 100 mg tablet 100 mg PO QDAY 11/30/17 Metoprolol(XL)Succ [Toprol Xl (Beta Stefan)] 100 mg PO DAILY #30 tab 03/25/18 The following prescriptions were given: Metoprolol(XL)Succ [Toprol Xl (Beta Stefan)] 100 mg PO DAILY #30 tab Primary Care Physician: Sukumar Booker MD [Primary Care Provider] - Please follow up with your Primary Care Physician in: in 3-5 days Test Results: Test results from this visit will be discussed in further detail at your follow-up appointment, if applicable.
--- NOTE | 2018-03-25 20:22 | NURSING ---
Pt waked in [place] with RN at this time. Site C/D/I after walking. See assessment and VS.
--- NOTE | 2018-03-25 20:32 | PCM.DC.SUM ---
Discharge Date and Diagnosis Date of Admission: 03/25/18 Date of Discharge: 03/25/18 - Primary Discharge Diagnosis PVC - Secondary Discharge Diagnosis Chronic Problems (Last Reviewed 02/23/18 @ 13:59 by Yohan Ron MD) Arrhythmia (Chronic) Wide QRS tachycardai, Nonsustained V. Tach. Umbilical hernia (Chronic) Hyperlipidemia (Chronic) Dyspnea (Chronic) Hypertension (Chronic) Obesity (Chronic) Hospital Course and Treatment Imaging Results: None Consults: Cardiology Operations: None Procedures: Cardiac catheterization - LEFT HEART ASSESSMENT Left Ventricular Ejection Fraction: by LV Gram 60 % Normal Left Ventricular systolic function Normal Left Ventricular systolic function LVEDP: 22 mmHg LEFT MAIN: Angiographically normal LEFT ANTERIOR DECENDING ARTERY: Angiographically normal CIRCUMFLEX ARTERY: Angiographically normal RIGHT CORONARY ARTERY: Angiographically normal Summary of Care Provided: HPI: The patient is a 57 year old M with a h/o hypertension, diabetes, umbilical hernia, hyperlipidemia presents from home because he was told by a collision technician to go to the ER after they read a holter monitor report with a significant amount of PVC's. He remains asymptomatic and denies any CP, SOB, lightheadedness or palpitations. 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 He was to have surgery and it was canceled because as anesthesia was preparing, his heart monitor was demonstrating a significant number of bi/trigeminy as well as runs of Vtach. He was discharged from the stay with a holter monitor which was read today with significant PVC burden and he was asked to come to the hospital for cath. In the ED he was started on amiodarone. Electrolytes were all normal. Hospital Course: 1. Asymptomatic PVC - He has been having this for 2 years and has remained asymptomatic. Cardiac cath was completely normal even though the stress a month ago showed dilated cardiomyopathy. His metoprolol was increased to 100 mg daily since he continues to have trigeminy and he was discharged home after cleared by cardiology and discussion with the EP physician in [facility] who he will f/u with as an outpatient for possible ablation. 2. DM2 - He is to hold his metformin and Januvia for 2 days given the amount of contrast given during today cath. Discharge Activity: Return to Normal Activity May shower in (days): 1 Call your doctor if your incision/area has: Increased Pain/ Swelling, Increased Redness Call your doctor if you observe: Shortness of breath, Dizziness, Fainting spells, Chest pain, Increased palpitations (irregular heartbeat) Remove Dressing in (days):: 1 Cleanse incision/area with: - - Do not soak Home Medications: Medications to take at Discharge lisinopril 10 mg tablet 10 mg PO QDAY 30 Days #30 tab 11/30/17 metformin ER 500 mg tablet,extended release 24 hr 500 mg PO BID 30 Days #60 11/30/17 simvastatin 20 mg tablet 20 mg PO QPM 30 Days #30 tab 11/30/17 sitagliptin 100 mg tablet 100 mg PO QDAY 11/30/17 Metoprolol(XL)Succ [Toprol Xl (Beta Stefan)] 100 mg PO DAILY #30 tab 03/25/18 Following Prescrptions Were Given to Patient: Metoprolol(XL)Succ [Toprol Xl (Beta Stefan)] 100 mg PO DAILY #30 tab Primary Care Physician: Sukumar Booker MD [Primary Care Provider] - Please follow up with your Primary Care Physician in: in 3-5 days Disposition: Home Minutes spent on discharge:: 35 Patient Condition:: Good Medical Necessity - Tobacco Use Smoking Status: Never smoker Meaningful Use Info Meaningful Use Diagnoses (Choose all that apply): None applicable Code Visit Inpatient E&M: 59840 Disch Hosp
--- NOTE | 2018-03-25 20:36 | NURSING ---
IVs removed. Teaching completed. Pt prefers to ambulate to exit. at bedside.
== END 2018-03-25 20:40 | disposition home or self-care (01) ==
LOC: ED 11:59 → CLSP 13:42 → PCU 03-29 10:46
PROVIDERS: Admitting Provider Internal Medicine Cardiovascular Disease; Emergency Provider Emergency Medicine; Family Provider Family Medicine; PCP Family Medicine; Visit Provider Internal Medicine Cardiovascular Disease
DX: I49.3 Ventricular premature depolarization (principal); E78.5 Hyperlipidemia, unspecified; I10 Essential (primary) hypertension; E66.01 Morbid (severe) obesity due to excess calories; Z79.899 Other long term (current) drug therapy; Z79.84 Long term (current) use of oral hypoglycemic drugs; Z68.41 Body mass index [BMI] 40.0-44.9, adult; Z71.3 Dietary counseling and surveillance; E11.9 Type 2 diabetes mellitus without complications; K42.9 Umbilical hernia without obstruction or gangrene; I42.0 Dilated cardiomyopathy; I48.1 Persistent atrial fibrillation
CPT/HCPCS: 71045; 80048; 84484; 85025; 93005; 93458; 99152; 99153; 99218; 99283; J7030; A4216; C1769; C1894; G0378; Q9967

== ENCOUNTER 2018-05-26 06:53 | Day surgery (SDC) | payer BC, SELFPAY ==
[2018-05-26] VITALS (7 sets, daily range): BP systolic 100–147; BP diastolic 49–90; PULSE 45–72; RESP 14–97; TEMP 36.8–37.4; O2SAT 94–99; BMI 41.9
[2018-05-26 07:50] LABS: Bedside Glucose 134 mg/dL (70-110)
--- NOTE | 2018-05-26 08:12 | PCM.OPRPT ---
Problem List (1) Umbilical hernia Status: Acute Qualifiers: Obstruction and gangrene presence: without obstruction or gangrene Qualified Code(s): K42.9 - Umbilical hernia without obstruction or gangrene Report of Operation Date of Procedure: 05/26/18 Pre-Operative Diagnosis: Umbilical hernia without obstruction without gangrene Post-Operative Diagnosis: Same Surgery/Procedure Performed:: Umbilical hernia repair with mesh Type of Anesthesia:: General Anesthesiologist: Jorden Penaloza Drains: #15 round Estimated Blood Loss (mL): < 25 cc Description of Procedure: Patient was brought into the operating room. Placed in the supine position. Under excellent general endotracheal intubation the abdomen was sterilely prepped and draped in the usual fashion. Local was injected infraumbilically. A curvilinear incision was made. Dissection was carried down. Patient was noted to have a large umbilical defect. I dissected it free from the umbilical skin with the use of a scalpel. Circumferentially came around it at the base once I had identified the good fascia graft to good fascia with a [place] created a preperitoneal window had a small rent in the hernia sac which I repaired with a 2-0 Vicryl. I placed it back into its preperitoneal space without difficulty. I circumferentially dissected the preperitoneal space free. I fashioned a Venturi no ST hernia patch reference #[id number] number [id number]. I circumferentially tacked outside near the rings with a pro-tacker I then brought the fascia down to the mesh with interrupted [id number] stitches of #1 Nurolon's. A 15 round Reggie-Dinero drain was placed inside the wound and sutured to the skin with a 3-0 nylon. I brought the umbilicus back down to the fascia with a 2-0 Vicryl. Subcu was brought together with a 2-0 Vicryl. Deep dermals of 3-0 Vicryl. In a running 4-0 Monocryl. Dermabond was applied [place] cotton was applied sterile dressings were applied and the patient tolerated the procedure well. - Admit VTE Documentation VTE Present on Admission: No VTE Mechan Device Prophylaxis: SCD's VTE Pharm Prophylaxis ordered?: No Reason prophylaxis not ordered:: Treatment Not Indicated
--- NOTE | 2018-05-26 08:16 | DCINST_ITS ---
Discharge Diet: Light diet - advance as tolerated Discharge Activity: Return to Normal Activity, May Drive - when you are no longer taking narcotic pain medications., May Shower - with the bandage in place 1-2 days after surgery. Lifting Restrictions: 20 pounds for 8 weeks. Additional Activity Instructions:: Climbing stairs is fine, walking is encouraged. Sitting in bed may be uncomfortable. Sitting up using your lateral muscles (sitting up sideways) is usually more comfortable. Do not drive, work heavy equipment of sign legal documents for 24 hours. If your hernia repair was an ingunial repair, you may have scrotal swelling, an ice pack and/or athletic support can provide more comfort. Pain medications may cause nausea, you should typically eat light foods as you take your pain medications. Pain medications may also cause constipation. If you have difficulty with this, discuss with your doctor. Call your doctor if your incision/area has: Continuous Slow Oozing, Sudden Increased Bleeding, Increased Pain/ Swelling, Increased Redness, Foul Smelling Discharge Call your doctor if you observe: Fever of 101 or Higher Suture Line Care: Avoid Pulling/Pushing, Avoid Pinching/Bending Additional Dressing/Incision Instructions:: Leave the operative bandage on for 2-3 days. When you remove the bandage, leave the steri-strips on place until your follow up appointment or they fall off. Allergies/Adverse Reactions: Allergies No Known Allergies Allergy (Verified 05/26/18 07:18) Medications to take at Discharge lisinopril 10 mg tablet 10 mg PO QDAY 30 Days #30 tab 11/30/17 metformin ER 500 mg tablet,extended release 24 hr 500 mg PO BID 30 Days #60 11/30/17 simvastatin 20 mg tablet 20 mg PO QPM 30 Days #30 tab 11/30/17 sitagliptin 100 mg tablet 100 mg PO QDAY 11/30/17 Metoprolol(XL)Succ [Toprol Xl (Beta Stefan)] 100 mg PO DAILY 05/19/18 Naproxen Sodium [Aleve] 220 mg PO PRN PRN 05/19/18 Oxycodone HCl/Acetaminophen [Percocet 5/325] 1 - 2 tab PO Q4H PRN PRN 5 Days #30 tab 05/26/18 The following prescriptions were given: Oxycodone HCl/Acetaminophen [Percocet 5/325] 1 - 2 tab PO Q4H PRN PRN 5 Days #30 tab PRN Reason: Pain Primary Care Physician: Sukumar Booker MD [Primary Care Provider] - Test Results: Test results from this visit will be discussed in further detail at your follow- up appointment, if applicable. Please Follow Up With: Yohan Ron MD - [phone] When: Plan to have a follow up appointment in 7 days. Call to schedule.
[2018-05-26] MEDS: Bupivacaine Mpf 0.5% 30 ML VIAL (09:10)
[2018-05-26 10:31] LABS: Bedside Glucose 128 mg/dL (70-110)
[2018-05-26] MEDS: oxyCODONE 5 MG Tablet 10 MG PO (11:23)
== END 2018-05-26 11:40 | disposition home or self-care (01) ==
LOC: SDC 06:54 → AC 06:54
PROVIDERS: Family Provider Family Medicine; PCP Family Medicine; Visit Provider Surgery
PROC: (CPT 49585; principal; 2018-05-26 09:00)
DX: K42.9 Umbilical hernia without obstruction or gangrene (principal); E78.5 Hyperlipidemia, unspecified; E66.9 Obesity, unspecified; I10 Essential (primary) hypertension; E11.9 Type 2 diabetes mellitus without complications; Z68.42 Body mass index [BMI] 45.0-49.9, adult
CPT/HCPCS: 49585; 82962; J7120; C1781; J2405